=== PATIENT | male | born 1970 | race African-American/Black ===

== ENCOUNTER 2016-07-29 07:10 | Emergency (ER) | payer MEDICAID, OTHER ==
[~2016-07-29] VITALS: Ht 175.3 cm; Wt 113.4 kg
[2016-07-29 07:16] VITALS: BP 149/79
== END 2016-07-29 07:27 | disposition home or self-care (01) ==
LOC: ER 07:11
DX: H10.32 Unspecified acute conjunctivitis, left eye (principal)
CPT/HCPCS: 99283; A4606; Z7610

== ENCOUNTER 2016-12-24 16:41 | Emergency (ER) | payer MEDICAID ==
[~2016-12-24] VITALS: Ht 172.7 cm; Wt 145.1 kg
[2016-12-24 16:41] VITALS: BP 134/87
[2016-12-24] MEDS ORDERED: KETOROLAC TROMETHAMINE INJ 60 MG/2 ML VIAL IM ONE (17:00)
[2016-12-24] MEDS ORDERED: HYDROCODONE/APAP 10/325MG 1 EA TABLET PO ONE (17:00)
[2016-12-24] MEDS ORDERED: KETOROLAC TROMETHAMINE INJ 30 MG/ML VIAL ONE (17:01)
[2016-12-24] MEDS ORDERED: HYDROCODONE/APAP 10/325MG 1 EA TABLET ONE (17:01)
== END 2016-12-24 17:09 | disposition home or self-care (01) ==
LOC: ER 16:42
DX: M25.562 Pain in left knee (principal); M79.89 Other specified soft tissue disorders; G89.29 Other chronic pain; E66.01 Morbid (severe) obesity due to excess calories
CPT/HCPCS: A4606; J1885; Z7610

== ENCOUNTER 2017-02-09 15:40 | Emergency (ER) | payer MEDICAID ==
[~2017-02-09] VITALS: Ht 175.3 cm; Wt 149.7 kg
[2017-02-09 16:01] VITALS: BP 154/97
== END 2017-02-09 16:23 | disposition home or self-care (01) ==
LOC: ER 15:41
DX: M25.562 Pain in left knee (principal)
CPT/HCPCS: 99283; A4606; Z7610

== ENCOUNTER 2017-09-30 14:40 | Emergency (ER) | payer MEDICAID ==
[~2017-09-30] VITALS: Ht 175.3 cm; Wt 127.0 kg
[2017-09-30 14:40] VITALS: BP 148/108
[2017-09-30] MEDS ORDERED: IBUPROFEN 600 MG TABLET PO ONE ×2 (16:00→16:06)
[2017-09-30] MEDS ORDERED: TRAMADOL HCL 50 MG TABLET PO ONE (16:00)
[2017-09-30] MEDS ORDERED: TRAMADOL HCL 50 MG TABLET ONE (16:06)
== END 2017-09-30 17:31 | disposition home or self-care (01) ==
LOC: ER 14:40
DX: M79.642 Pain in left hand (principal); E66.01 Morbid (severe) obesity due to excess calories; X58.XXXA Exposure to other specified factors, initial encounter; Y93.89 Activity, other specified; Y92.89 Other specified places as the place of occurrence of the external cause; Y99.8 Other external cause status
CPT/HCPCS: 29125; 73130; 99284; A4606; Z7610

== ENCOUNTER 2019-02-01 11:11 | Emergency (ER) | payer MEDICAID ==
[~2019-02-01] VITALS: Ht 175.3 cm; Wt 146.1 kg
--- NOTE | 2019-02-01 11:29 | NUR ---
Patient came in via paramedics, from [facility] due to near syncope in the shower. On room air, breathign evenly and unlabored. denies any pain at this time. Connected to the monitor and pulse ox. kept comfortable, will continue to monitor accordingly.
--- NOTE | 2019-02-01 11:30 | NUR ---
Lab drawned and sent to lab.
[2019-02-01 11:31] LABS: BASOPHILS % (AUTO) 0.8 % (0.0-2.0); EOSINOPHILS % (AUTO) 2.4 % (0.0-6.0); HEMATOCRIT 44 % (39-51); HEMOGLOBIN 14.3 g/dL (13.5-17.5); LYMPHOCYTES # (AUTO) 1.8 /CMM (0.8-4.8); LYMPHOCYTES % (AUTO) 32.5 % (20.0-44.0); MEAN CORPUSCULAR HGB CONC 33 g/dl (31.0-36.0); MEAN CORPUSCULAR VOLUME 83 fL (80-96); MONOCYTES # (AUTO) 0.6 /CMM (0.1-1.30); MONOCYTES % (AUTO) 10.6 % (2.0-12.0); NEUTROPHILS % (AUTO) 53.7 % (43.0-81.0); PLATELET COUNT (AUTO) 332 /CMM (150-450); RED BLOOD CELL COUNT(AUTO) 5.28 MIL/uL (4.5-6.0); WHITE BLOOD COUNT (AUTO) 5.6 K/uL (4.3-11.0)
[2019-02-01 11:38] LABS: CALCIUM, SERUM 9.8 mg/dL (8.5-10.1); CARBON DIOXIDE 26 mmol/L (21-32); CHLORIDE 99 mmol/L (98-107); CREATININE 1.6 mg/dL (0.6-1.3); GLUCOSE 113 mg/dL (74-106); POTASSIUM 4.2 mmol/L (3.5-5.1); SODIUM SERUM 134 mmol/L (136-145); UREA NITROGEN, BLOOD 26 mg/dL (7-18)
[2019-02-01 11:44] LABS: ACETAMINOPHEN 0 ug/ml (10-30); ALANINE AMINOTRANSFERASE 33 U/L (12-78); ALBUMIN 3.5 g/dL (3.4-5.0); ALCOHOL, BLOOD < 3 mg/dL (0-0); ALKALINE PHOSPHATASE 52 U/L (46-116); ASPARTATE AMINOTRANSFERASE 20 U/L (15-37); BILIRUBIN,DIRECT 0.1 mg/dL (0.0-0.2); BILIRUBIN,TOTAL 0.4 mg/dL (0.2-1.0); SALICYLATE 1.3 mg/dL (2.8-20.0); TOTAL PROTEIN, SERUM 8.4 g/dL (6.4-8.2)
--- NOTE | 2019-02-01 12:14 | NUR ---
[facility] TO [facility] ETA [id number] TRIP [id number]
[2019-02-01 13:45] VITALS: BP 125/84
--- NOTE | 2019-02-01 13:47 | NUR ---
Patient discharged back to [facility] in stable condition. Written and verbal after care instructions given. Patient verbalizes understanding of instruction. Report given to Deejay NOBLES and for shun.
== END 2019-02-01 13:46 | disposition home or self-care (01) ==
LOC: ER 11:12
DX: J06.9 Acute upper respiratory infection, unspecified (principal); F32.9 Major depressive disorder, single episode, unspecified; E66.01 Morbid (severe) obesity due to excess calories; F10.10 Alcohol abuse, uncomplicated; Y90.0 Blood alcohol level of less than 20 mg/100 ml
CPT/HCPCS: 36415; 80048; 80076; 80307; 80329; 85025; 99283; G0480

== ENCOUNTER 2022-02-25 10:35 | Inpatient (IN) | payer MEDICAID ==
[~2022-02-25] VITALS: Ht 175.3 cm; Wt 157.4 kg
--- NOTE | 2022-02-25 11:00 | NUR ---
, from home, c/o R leg pain x 2 days and swelling. PLACED ON BED, AAOX4, BREATHING EVEN AND UNLABORED, IN PAIN 10/10 PS
--- NOTE | 2022-02-25 11:15 | NUR ---
BLOPOD DRAWN AND SENT TO LAB
[2022-02-25 11:18] LABS: BASOPHILS % (AUTO) 0.2 % (0.0-2.0); EOSINOPHILS % (AUTO) 0.8 % (0.0-6.0); HEMATOCRIT 39 % (39-51); HEMOGLOBIN 12.5 g/dL (13.5-17.5); LYMPHOCYTES # (AUTO) 1.2 K/uL (0.8-4.8); LYMPHOCYTES % (AUTO) 16.4 % (20.0-44.0); MEAN CORPUSCULAR HGB CONC 32 g/dl (31.0-36.0); MEAN CORPUSCULAR VOLUME 80 fL (80-96); MONOCYTES % (AUTO) 13.5 % (2.0-12.0); NEUTROPHILS # (AUTO) 5.1 K/uL (1.8-8.9); NEUTROPHILS % (AUTO) 69.1 % (43.0-81.0); PLATELET COUNT (AUTO) 194 K/uL (150-450); RED BLOOD CELL COUNT(AUTO) 4.83 MIL/uL (4.5-6.0); WHITE BLOOD COUNT (AUTO) 7.4 K/uL (4.3-11.0)
[2022-02-25 11:56] LABS: CALCIUM, SERUM 8.9 mg/dL (8.5-10.1); CARBON DIOXIDE 27 mmol/L (21-32); CHLORIDE 101 mmol/L (98-107); CREATININE 1.2 mg/dL (0.6-1.3); GLUCOSE 108 mg/dL (74-106); POTASSIUM 3.9 mmol/L (3.5-5.1); SODIUM SERUM 136 mmol/L (136-145); UREA NITROGEN, BLOOD 14 mg/dL (7-18)
[2022-02-25 12:10] LABS: ALANINE AMINOTRANSFERASE 36 U/L (12-78); ALKALINE PHOSPHATASE 58 U/L (46-116); ASPARTATE AMINOTRANSFERASE 32 U/L (15-37); BILIRUBIN,DIRECT 0.2 mg/dL (0.0-0.2); BILIRUBIN,TOTAL 0.9 mg/dL (0.2-1.0); TOTAL PROTEIN, SERUM 8.7 g/dL (6.4-8.2)
[2022-02-25] MEDS ORDERED: MORPHINE SULFATE INJ 4 MG/ML DISP.SYRIN ONE (12:20)
--- NOTE | 2022-02-25 12:20 | NUR ---
SWAB FOR COVID19 SENT TO LAB
--- NOTE | 2022-02-25 12:23 | NUR ---
MOVE SHEET SUBMITTED.
[2022-02-25] MEDS ORDERED: MORPHINE SULFATE INJ 2 MG/ML DISP.SYRIN IV ONE (12:30)
--- NOTE | 2022-02-25 12:36 | NUR ---
MD MADE AWARE OF BLOOD PRESSURE
[2022-02-25] MEDS ORDERED: HYDROMORPHONE 1 MG/1 ML DISP.SYRIN ONE (12:51)
[2022-02-25] MEDS ORDERED: HYDROMORPHONE 1 MG/1 ML DISP.SYRIN IV ONE (13:00)
--- NOTE | 2022-02-25 16:38 | NUR ---
BED 323-2
[2022-02-25] MEDS ORDERED: MAGNESIUM HYDROXIDE 30 ML UDC PO PRN (17:00)
[2022-02-25] MEDS ORDERED: HYDROCODONE/APAP 5/325MG TABLET PO PRN (17:00)
[2022-02-25] MEDS ORDERED: Z GUARD REMEDY 4 OZ OINT TP PRN (17:00)
[2022-02-25] MEDS ORDERED: ZOLPIDEM TARTRATE 5 MG TABLET PO PRN (17:00)
[2022-02-25] MEDS ORDERED: MAG HYDROX/AL HYDROX/SIMETH 30 ML UDC PO PRN (17:00)
[2022-02-25] MEDS ORDERED: ACETAMINOPHEN 325 MG TABLET PO PRN (17:00)
[2022-02-25] MEDS ORDERED: ONDANSETRON HCL/PF 4 MG/2 ML VIAL IVP PRN (17:00)
[2022-02-25] MEDS: MORPHINE SULFATE INJ 4 MG/ML DISP.SYRIN IV PRN (17:58)
[2022-02-25 18:00] VITALS: BP 162/105
--- NOTE | 2022-02-25 18:58 | NUR ---
RN CLOSING NOTE PATIENT ADMITTED TO UNIT @ 1715. A/O X4; ABLE TO VERBALIZE NEEDS. UNABLE TO AMBULATE DUE TO RIGHT LEG PAIN/SWELLING/ AFFECTED LEG WRAPPED IN RUSTY BANDAGE. PATIENT STATED BANDAGE WAS PLACED IN EMERGENCY DEPARTMENT. IV ACCESS TO RAC IS PATENT AND FLUSHING WELL. PATIENT USES URINAL. ON REGULAR DIET AND TOLERATING MEAL WELL. PATIENT C/O PAIN TO AFFECTED LEG 10/10. GIVEN MORPHINE @ 1758. MEDICATION EFFECTIVE. PATIENT IS FULL CODE STATUS. SAFETY MEASURES IN PLACE, BED LOW AND LOCKED. SIDERAIL UP X2. CALL LIGHT WITHIN REACH. WILL CONTINUE TO MONITOR.
[2022-02-25 20:00] VITALS: BP_SYST 158; BP_SYST 160; BP_DIAS 103; BP_DIAS 86
--- NOTE | 2022-02-25 20:35 | NUR ---
MS/TELE/RN ON INITIAL SHIFT ROUNDING, PATIENT WAS SLEEPING, NO SIGNS OF DISTRESS NOTED, CALL LIGHT IN REACH, WILL MONITOR.
[2022-02-25] MEDS: ENOXAPARIN SODIUM 40 MG/0.4 ML DISP.SYRIN SQ SCH (21:12)
--- NOTE | 2022-02-26 01:07 | NUR ---
MS/TELE/RN PATIENT IS SLEEPING AT THIS TIME, NO SIGNS OF DISTRESS NOTED, CALL LIGHT IN REACH. WILL CONTINUE TO MONITOR.
[2022-02-26] MEDS: MORPHINE SULFATE INJ 4 MG/ML DISP.SYRIN IV PRN (05:09)
--- NOTE | 2022-02-26 06:10 | NUR ---
MS/TELE/RN PATIENT APPEARS SLEEPING, NO SIGNS OF DISTRESS NOTED, CALL LIGHT IN REACH, ALL NEEDS ATTENDED AT THIS TIME, WILL CONTINUE TO MONITOR.
[2022-02-26 06:11] LABS: BASOPHILS % (AUTO) 0.3 % (0.0-2.0); EOSINOPHILS % (AUTO) 0.6 % (0.0-6.0); HEMATOCRIT 36 % (39-51); HEMOGLOBIN 11.6 g/dL (13.5-17.5); LYMPHOCYTES # (AUTO) 1.5 K/uL (0.8-4.8); LYMPHOCYTES % (AUTO) 20.3 % (20.0-44.0); MEAN CORPUSCULAR HGB CONC 33 g/dl (31.0-36.0); MEAN CORPUSCULAR VOLUME 80 fL (80-96); MONOCYTES # (AUTO) 1.6 K/uL (0.1-1.30); MONOCYTES % (AUTO) 21.5 % (2.0-12.0); NEUTROPHILS # (AUTO) 4.3 K/uL (1.8-8.9); NEUTROPHILS % (AUTO) 57.3 % (43.0-81.0); PLATELET COUNT (AUTO) 213 K/uL (150-450); RED BLOOD CELL COUNT(AUTO) 4.49 MIL/uL (4.5-6.0); WHITE BLOOD COUNT (AUTO) 7.6 K/uL (4.3-11.0)
[2022-02-26 07:20] LABS: CREATININE 1.1 mg/dL (0.6-1.3); MAGNESIUM 1.9 mg/dL (1.8-2.4); PHOSPHORUS 4.1 mg/dL (2.5-4.9); POTASSIUM 3.8 mmol/L (3.5-5.1)
[2022-02-26 07:21] LABS: THYROID STIMULATING HORMONE 2.326 uIU/mL (0.358-3.74)
--- NOTE | 2022-02-26 07:45 | NUR ---
RN OPENING NOTE PATIENT AWAKE IN BED RESTING. A/O X 4. PAIN 4/10 NOTED AT THIS TIME, PAIN MEDICATION GIVEN BY PREVIOUS SHIFT. ON ROOM AIR, NO DISTRESS OR SHORTNESS OF BREATH NOTED. IV ACCESS RAC #20G, INTACT, PATENT AND FLUSHING WELL. FALL AND SAFETY MEASURES IN PLACE, BED IN LOW AND LOCK POSITION, CALL LIGHT AND TABLE WITHIN EASY REACH, SIDE RAILS UP X2. WILL CONTINUE TO MONITOR.
[2022-02-26 08:00] VITALS: BP 157/87
[2022-02-26] MEDS: PANTOPRAZOLE 40 MG TABLET.DR PO SCH (08:24)
[2022-02-26 11:53] LABS: LYMPHOCYTES % (MANUAL) 23 % (16-48); NEUTROPHILS % (MANUAL) 59 (42-76)
[2022-02-26 11:54] LABS: BASOPHILS % (MANUAL) 0 % (0.0-2.0); EOSINOPHILS % (MANUAL) 0 % (0-4); MONOCYTES % (MANUAL) 18 % (0-11.0)
[2022-02-26] MEDS: IBUPROFEN 600 MG TABLET PO SCH ×2 (12:04→21:49)
[2022-02-26 16:00] VITALS: BP 173/100
[2022-02-26] MEDS: LOSARTAN POTASSIUM 50 MG TABLET PO SCH (16:39)
[2022-02-26 17:45] VITALS: BP 155/92
--- NOTE | 2022-02-26 19:32 | NUR ---
RN CLOSING NOTE PATIENT AWAKE IN BED RESTING. A/O X 4. NO PAIN NOTED AT THIS TIME. ON ROOM AIR, NO DISTRESS OR SHORTNESS OF BREATH NOTED. IV ACCESS RAC #20G, INTACT, PATENT AND FLUSHING WELL. FALL AND SAFETY MEASURES IN PLACE, BED IN LOW AND LOCK POSITION, CALL LIGHT AND TABLE WITHIN EASY REACH, SIDE RAILS UP X2. WILL ENDORSE TO LAP WINDING MACHINE OPERATOR.
--- NOTE | 2022-02-26 19:40 | NUR ---
MS/TELE/RN RECEIVED PATIENT SLEEPING, NO SIGNS OF DISTRESS NOTED, BREATHING EVEN AND UNLABORED, CALL LIGHT IN REACH. WILL MONITOR.
[2022-02-26 20:35] VITALS: BP 153/90
[2022-02-26] MEDS: hydrALAZINE HCL 25 MG TABLET PO SCH (21:49)
[2022-02-26] MEDS: ENOXAPARIN SODIUM 40 MG/0.4 ML DISP.SYRIN SQ SCH (21:50)
--- NOTE | 2022-02-27 00:26 | NUR ---
MS/TELE/RN PATIENT IS SLEEPING AT THIS TIME, NO SIGNS OF DISTRESS NOTED, CALL LIGHT IN REACH, WILL CONTINUE TO MONITOR.
[2022-02-27 04:53] VITALS: BP 148/97
[2022-02-27] MEDS: hydrALAZINE HCL 25 MG TABLET PO SCH ×3 (05:41→21:30)
[2022-02-27] MEDS: IBUPROFEN 600 MG TABLET PO SCH ×3 (05:41→21:29)
--- NOTE | 2022-02-27 06:22 | NUR ---
MS/TELE/RN PATIENT IS SLEEPING, AROUSES EASILY, NO DISTRESS NOTED, CALL LIGHT IN REACH, ALL NEEDS ATTENDED AT THIS TIME, WILL CONTINUE TO MONITOR.
--- NOTE | 2022-02-27 07:40 | NUR ---
RN OPENING NOTE PATIENT AWAKE IN BED RESTING. A/O X 4. PAIN 3/10 NOTED AT THIS TIME, PAIN MEDICATION GIVEN BY PREVIOUS SHIFT. ON ROOM AIR, NO DISTRESS OR SHORTNESS OF BREATH NOTED. IV ACCESS RAC #20G, INTACT, PATENT AND FLUSHING WELL. FALL AND SAFETY MEASURES IN PLACE, BED IN LOW AND LOCK POSITION, CALL LIGHT AND TABLE WITHIN EASY REACH, SIDE RAILS UP X2. WILL CONTINUE TO MONITOR.
[2022-02-27 08:00] VITALS: BP 153/94
[2022-02-27] MEDS: PANTOPRAZOLE 40 MG TABLET.DR PO SCH (09:49)
[2022-02-27] MEDS: LOSARTAN POTASSIUM 50 MG TABLET PO SCH (09:49)
[2022-02-27 16:00] VITALS: BP 182/98
--- NOTE | 2022-02-27 18:46 | NUR ---
RN CLOSING NOTE PATIENT AWAKE IN BED RESTING. A/O X 4. NO PAIN NOTED AT THIS TIME. ON ROOM AIR, NO DISTRESS OR SHORTNESS OF BREATH NOTED. IV ACCESS RAC #20G, INTACT, PATENT AND FLUSHING WELL. SCHEDULE MEDICATIONS ADMINISTERED. FALL AND SAFETY MEASURES IN PLACE, BED IN LOW AND LOCK POSITION, CALL LIGHT AND TABLE WITHIN EASY REACH, SIDE RAILS UP X2. WILL ENDORSE TO TELEVISION PARTS TESTER.
--- NOTE | 2022-02-27 19:30 | NUR ---
RN OPENING NOTE PATIENT IN BED, SLEEPING, PATIENT IS EASILY AWAKENED. A/O X 4 AT THIS TIME. PATIENT IS ON RA, TOLERATING WELL, BREATHING EVEN AND UNLABORED. PATIENT DOES NOT REPORT ANY PAIN AT THIS TIME. RAC 20 G PATENT AND INTACT, FLUSHING WELL, SALINE LOCKED ONLY. SAFETY MEASURES IN PLACE: BED LOCKED AND IN LOWEST POSITION, CALL LIGHT WITHIN REACH, SIDE RAILS UP. WILL MONITOR PATIENT CLOSELY.
[2022-02-27] MEDS: ENOXAPARIN SODIUM 40 MG/0.4 ML DISP.SYRIN SQ SCH (21:29)
[2022-02-28] MEDS: IBUPROFEN 600 MG TABLET PO SCH ×3 (05:29→20:25)
[2022-02-28] MEDS: hydrALAZINE HCL 25 MG TABLET PO SCH ×3 (05:31→20:26)
--- NOTE | 2022-02-28 06:51 | NUR ---
RN CLOSING NOTE PATIENT IN BED, SLEEPING, PATIENT IS EASILY AWAKENED. A/O X 4 AT THIS TIME. PATIENT IS ON RA, TOLERATING WELL, BREATHING EVEN AND UNLABORED. PATIENT DOES NOT REPORT ANY PAIN AT THIS TIME. MANAGED PAIN WITH SCHEDULED MOTRIN. RAC 20 G PATENT AND INTACT, FLUSHING WELL, SALINE LOCKED ONLY. SAFETY MEASURES IN PLACE: BED LOCKED AND IN LOWEST POSITION, CALL LIGHT WITHIN REACH, SIDE RAILS UP. ALL NEEDS MET AND ATTENDED. ALL ORDERS CARRIED OUT. WILL ENDORSE TO DAY SHIFT NURSE FOR MIKE.
[2022-02-28] MEDS ORDERED: CEFTRIAXONE 1 G in IV D5W 50 ML IV SCH (07:30)
--- NOTE | 2022-02-28 07:30 | NUR ---
MS RN OPENING NOTE RECEIVED PATIENT AWAKE IN BED. PATIENT IS A/O X 4 . PATIENT IS ON RA, TOLERATING WELL, BREATHING EVEN AND UNLABORED. NO PAIN AT THIS TIME. RAC 20 G PATENT AND INTACT, FLUSHING WELL, SALINE LOCKED ONLY. SAFETY MEASURES IN PLACE: BED LOCKED AND IN LOWEST POSITION, CALL LIGHT WITHIN REACH, SIDE RAILS UPTIMES 2. WILL CONTINUE TO MONITOR THE PATIENT CLOSELY.
[2022-02-28] MEDS: PANTOPRAZOLE 40 MG TABLET.DR PO SCH (07:44)
[2022-02-28] MEDS: LOSARTAN POTASSIUM 50 MG TABLET PO SCH (08:40)
[2022-02-28] MEDS: CEFTRIAXONE 2 G in IV D5W 100 ML IV SCH (08:41)
[2022-02-28 08:53] VITALS: BP 160/86
[2022-02-28] MEDS: VANCOMYCIN 1.25 GM in IV D5W 250 ML IV SCH ×2 (09:39→21:04)
[2022-02-28 15:45] VITALS: BP 144/96
--- NOTE | 2022-02-28 19:02 | NUR ---
MS RN CLOSING NOTE PATIENT AWAKE IN BED. PATIENT IS A/O X 4 . PATIENT IS ON RA, TOLERATING WELL, BREATHING EVEN AND UNLABORED. NO PAIN AT THIS TIME. RAC 20 G PATENT AND INTACT, FLUSHING WELL, SALINE LOCKED ONLY. ALL DUE MEDS GIVEN ORDERED. ALL SAFETY MEASURES IN PLACE: BED LOCKED AND IN LOWEST POSITION, CALL LIGHT WITHIN REACH, SIDE RAILS UPTIMES 2. WILL ENDORSE FOR MIKE.
[2022-02-28 20:19] VITALS: BP 131/96
[2022-02-28] MEDS: ENOXAPARIN SODIUM 40 MG/0.4 ML DISP.SYRIN SQ SCH (20:23)
[2022-02-28 20:50] VITALS: BP 142/81
[2022-03-01] MEDS: IBUPROFEN 600 MG TABLET PO SCH ×3 (04:39→21:42)
[2022-03-01] MEDS: hydrALAZINE HCL 25 MG TABLET PO SCH ×3 (04:39→21:42)
--- NOTE | 2022-03-01 05:48 | NUR ---
RN NOTE: PATIENT APPEARS SLEEPING, NO SIGNS OF DISTRESS NOTED, SAFETY PRECAUTION PLACED, CALL LIGHT IN REACH, ALL NEEDS ATTENDED AT THIS TIME, WILL CONTINUE TO MONITOR.
[2022-03-01 06:46] LABS: CALCIUM, SERUM 9.3 mg/dL (8.5-10.1); CREATININE 1.2 mg/dL (0.6-1.3); POTASSIUM 4.3 mmol/L (3.5-5.1)
--- NOTE | 2022-03-01 07:30 | NUR ---
MS RN OPENING NOTES RECEIVED PATIENT ON BED, AWAKE AND A/O X4. ON ROOM AIR TOLERATING WELL. NO SOB NOTED. NOT IN DISTRESS. WITH NO COMPLAINTS OF PAIN OR DISCOMFORT AT THIS TIME. WITH IV ACCESS AT THE RIGHT AC G20 SALINE LOCKED, PATENT AND INTACT. NO SIGNS OF IV INFILTRATION. SAFETY MEASURES IN PLACED. CALL LIGHT WITHIN REACH. BED ON LOWEST LOCKED POSITION, SIDE RAILS UP X2. WILL CONTINUE TO MONITOR.
[2022-03-01] MEDS: PANTOPRAZOLE 40 MG TABLET.DR PO SCH (08:36)
[2022-03-01] MEDS: LOSARTAN POTASSIUM 50 MG TABLET PO SCH (08:36)
[2022-03-01] MEDS: CEFTRIAXONE 2 G in IV D5W 100 ML IV SCH (08:36)
[2022-03-01 08:44] VITALS: BP 144/96
[2022-03-01] MEDS ORDERED: CLIN300C12 PO (08:50)
[2022-03-01] MEDS: VANCOMYCIN 1.25 GM in IV D5W 250 ML IV SCH ×2 (09:35→22:52)
[2022-03-01 16:50] VITALS: BP 139/84
--- NOTE | 2022-03-01 18:23 | NUR ---
MS RN CLOSING NOTES PATIENT ON BED, AWAKE AND A/O X4. ON ROOM AIR TOLERATING WELL. NO SOB NOTED. NOT IN DISTRESS. WITH NO COMPLAINTS OF PAIN OR DISCOMFORT AT THIS TIME. WITH NO IV ACCESS. PATIENT REFUSED IV REINSERTION. AWAITING FOR PICK-UP FOR DISCHARGE. DUE MEDS GIVEN. SAFETY MEASURES IN PLACED. CALL LIGHT WITHIN REACH. BED ON LOWEST LOCKED POSITION, SIDE RAILS UP X2. AWAITING FOR PICK-UP FOR DISCHARGE. WILL ENDORSE TO NEXT SHIFT FOR MIKE.
--- NOTE | 2022-03-01 19:47 | NUR ---
CONTINUITY OF CARE Patient to be dc today per report. Per Primary nurse Sarita/RN, awaiting transport for p/u. Looking into the CM notes. "Transportation with bariatric gurney arranged with [facility] via insurance . Reference number [id number]." Called and spoke with Rosario, stated [facility] cancelled trip d/t not enough information given by the Nurse. Provided patients weight, as per PT stand by assist with ambulation. Completed information with patients home address and bariatric gurney for transport. New confirmation number [id number]. Transport will call for ETA. Informed Charge nurse.
[2022-03-01 20:00] VITALS: BP 156/76
[2022-03-01] MEDS: ENOXAPARIN SODIUM 40 MG/0.4 ML DISP.SYRIN SQ SCH (21:43)
--- NOTE | 2022-03-01 21:47 | NUR ---
ANTICOAGULANT H/H 11.6 PLT 213 No bleeding. Given Lovenox injection, co signed by MALLORIE Mccartney.
--- NOTE | 2022-03-01 23:09 | NUR ---
PENDING TRANSPORT Patient pending dc home as bariatric gurney not available, as per transport will try to get availability in am after 0700. Informed Dr. Matthews. Will endorse to oncoming MALLORIE.
[2022-03-02] MEDS: hydrALAZINE HCL 25 MG TABLET PO SCH ×2 (05:46→12:48)
[2022-03-02] MEDS: IBUPROFEN 600 MG TABLET PO SCH ×2 (05:47→12:48)
--- NOTE | 2022-03-02 06:15 | NUR ---
END OF SHIFT REPORT Patient is Alert Oriented x4. Stable Oxygenation on room air. Right leg cellulitis, patient reports swelling improved from previous. On IV Rocephin and Vancomycin, afebrile throughout shift. Pain controlled with Motrin q8H. Patient independent with bed mobility. Pending dc home, awaiting Bariatric gurney for transport. As of this morning 0600am, [facility] ambulance called updated chart picker time 5:30pm today. Will endorse to oncoming RN.
[2022-03-02 06:46] LABS: CALCIUM, SERUM 9.6 mg/dL (8.5-10.1); CREATININE 1.3 mg/dL (0.6-1.3); POTASSIUM 4.2 mmol/L (3.5-5.1)
--- NOTE | 2022-03-02 07:30 | NUR ---
MS RN OPENING NOTES RECEIVED PATIENT ON BED AWAKE AND A/O X4. ON ROOM AIR TOLERATING WELL. NO SOB NOTED. NOT IN DISTRESS. WITH NO COMPLAINTS OF PAIN OR DISCOMFORT AT THIS TIME. WITH IV ACCESS AT RIGHT HAND G20 SALINE LOCKED, PATENT AND INTACT. FOR DISCHARGE AWAITING FOR PICK-UP AT 1730 TODAY FOR BARIATRIC TRANSPORTATION. SAFETY MEASURES IN PLACED. CALL LIGHT WITHIN REACH. BED ON LOWEST LOCKED POSITION, SIDE RAILS UP X2. WILL CONTINUE TO MONITOR.
[2022-03-02] MEDS: PANTOPRAZOLE 40 MG TABLET.DR PO SCH (09:42)
[2022-03-02] MEDS: LOSARTAN POTASSIUM 50 MG TABLET PO SCH (09:42)
[2022-03-02] MEDS: CEFTRIAXONE 2 G in IV D5W 100 ML IV SCH (09:42)
[2022-03-02] MEDS: VANCOMYCIN 1.25 GM in IV D5W 250 ML IV SCH (11:08)
[2022-03-02 16:00] VITALS: BP 106/60
--- NOTE | 2022-03-02 18:34 | NUR ---
MS RN CLOSING NOTES PATIENT ON BED AWAKE AND A/O X4. ON ROOM AIR TOLERATING WELL. NO SOB NOTED. NOT IN DISTRESS. WITH NO COMPLAINTS OF PAIN OR DISCOMFORT AT THIS TIME. WITH IV ACCESS AT RIGHT HAND G20 SALINE LOCKED, PATENT AND INTACT. STILL AWAITING FOR PICK-UP TODAY FOR BARIATRIC TRANSPORTATION. DUE MEDS GIVEN. SAFETY MEASURES IN PLACED. CALL LIGHT WITHIN REACH. BED ON LOWEST LOCKED POSITION, SIDE RAILS UP X2. WILL ENDORSE TO NEXT SHIFT FOR MIKE.
--- NOTE | 2022-03-02 19:15 | NUR ---
FUNCTIONAL DIRECTOR NOTES PATIENT WAS PICKED UP BY [facility] FOR BARIATRIC TRANSPORTATION FOR DISCHARGE IN STABLE CONDITION. IV LINE AND NAME WRIST BAND WAS REMOVED. DISCHARGE INSTRUCTIONS AND HOME MEDICATION INSTRUCTION PROVIDED TO THE PATIENT. PATIENT VERBALIZED UNDERSTANDING. MD AND CHARGE NURSE ARE AWARE OF THE DISCHARGE.
== END 2022-03-02 19:30 | disposition home or self-care (01) | DRG 383 ==
LOC: ER 10:38 → MED 16:45
PROVIDERS: ADMIT Student in an Organized Health Care Education/Training Program; ATTEND Internal Medicine
DX: L03.115 Cellulitis of right lower limb (principal); E44.0 Moderate protein-calorie malnutrition; Z68.43 Body mass index [BMI] 50.0-59.9, adult; E66.01 Morbid (severe) obesity due to excess calories; D64.9 Anemia, unspecified
CPT/HCPCS: 36415; 71045-TC; 73610-TC; 73700-TC; 80048-TC; 80076-TC; 80202-TC; 83735-TC; 83880; 84100-TC; 84443-TC; 84484-TC; 84550-TC; 85025-TC; 85652-TC; 85730-TC; 86140-TC; 87081-TC; 93926-TC; 93970-TC; 97112-TC; 97530-TC; C9803; G0378; J0696; J1170; J1650; J2270; J3370; J7040; J7050; J7060

== ENCOUNTER 2023-09-14 09:13 | Emergency (ER) | payer MEDICAID ==
[~2023-09-14] VITALS: Ht 175.3 cm; Wt 145.1 kg
[~2023-09-14 09:13] MED LIST: CLIN300C12 PO
[2023-09-14 09:32] VITALS: BP 146/116; TEMP 98
[2023-09-14] MEDS ORDERED: SULF1TAB48 PO (09:54)
[2023-09-14] MEDS ORDERED: FURO-144 PO (09:54)
[2023-09-14] MEDS ORDERED: POTA-58 PO (09:54)
[2023-09-14] MEDS ORDERED: CEPH500T PO (09:54)
[2023-09-14 10:05] VITALS: O2SAT 98
== END 2023-09-14 10:06 | disposition home or self-care (01) ==
LOC: ER 09:22
DX: E66.01 Morbid (severe) obesity due to excess calories (principal); I10 Essential (primary) hypertension; L98.499 Non-pressure chronic ulcer of skin of other sites with unspecified severity; R60.9 Edema, unspecified; Z68.42 Body mass index [BMI] 45.0-49.9, adult